=== PATIENT | female | born 1940 | race Caucasian/White ===

== ENCOUNTER 2017-03-14 17:28 | Emergency (ER) | payer MEDICARE, OTHER ==
[~2017-03-14] VITALS: Ht 157.5 cm; Wt 67.5 kg
[~2017-03-14 17:28] MED LIST: ASPI-664 PO; CALC-67 PO; DOCU-144 PO; IBUP400T22 PO; LANS30CA47 PO; LISI20TA11 PO; METO-448 PO; MULT1TAB59 PO; PEN500 PO; SYN1 PO; TRAM50TA2 PO; TYL500 PO
[2017-03-14 17:41] VITALS: Ht 157.5 cm; Wt 67.5 kg
[2017-03-14] MEDS ORDERED: ACETAMINOPHEN 500 MG TAB PO STA (19:44)
--- NOTE | 2017-03-14 19:55 | ERD ---
ER Documentation Chief Complaint Date/Time DATE: 03/14/17 TIME: 19:52 Chief Complaint bilateral leg and knee pain s/p fall x 3 days ago HPI 76-year-old female who presents the emergency department today complaining of knee pain and lower leg pain after falling while walking several days ago. States that she tripped and fell on the sidewalk. Patient states she has taken medication for pain with no improvement. Denies any fevers or chills or previous trauma. Denies hitting her head, loss of consciousness. ROS All systems reviewed and are negative except as per history of present illness. Medications Home Meds Active Scripts Acetaminophen* (Tylophen*) 500 Mg Capsule, 1 CAP PO Q6H Y for PAIN AND OR ELEVATED TEMP, #30 CAP Prov:ARIANNA THOMPSON PA-C 03/14/17 Naproxen* (Naprosyn*) 500 Mg Tablet, 500 MG PO BID Y for PAIN AND/OR INFLAMMATION, #30 TAB Prov:ARIANNA THOMPSON PA-C 03/14/17 Tramadol HCl (Tramadol HCl) 50 Mg Tablet, 50 MG PO Q4 Y for PAIN, #20 TAB Prov:ARIANNA THOMPSON-C 03/14/17 Tramadol HCl (Tramadol HCl) 50 Mg Tablet, 50 MG PO Q6 Y for PAIN, #20 TAB Prov:SERGE LEVINE NP 08/07/16 Ibuprofen* (Motrin*) 400 Mg Tab, 400 MG PO Q6H Y for PAIN AND OR ELEVATED TEMP, #30 TAB Prov:SERGE LEVINE NP 08/07/16 Penicillin V Potassium* (Penicillin V K*) 500 Mg Tab, 500 MG PO BID for 10 Days , TAB Prov:KIRSTIN HOGAN C 04/21/16 Acetaminophen* (Tylenol*) 500 Mg Tab, 1000 MG PO Q4H Y for PAIN AND OR ELEVATED TEMP for 5 Days, TAB Prov:KIRSTIN HOGAN C 04/21/16 Tramadol HCl (Tramadol HCl) 50 Mg Tablet, 50 MG PO Q4 Y for PAIN, #20 TAB Prov:MARIO BHATTI MD 03/11/16 Ibuprofen* (Motrin*) 400 Mg Tab, 400 MG PO Q6, #20 TAB Prov:MARIO BHATTI MD 03/11/16 Calcium Carbonate/Vitamin D3* (Os-Bijan 500+D*) 1 Tab Tablet, 1 TAB PO BID for 30 Days, TAB Prov:KIRSTEN HIGGINS. 02/15/16 Docusate Sodium* (Colace*) 100 Mg Capsule, 200 MG PO BID for 30 Days, CAP Prov:KIRSTEN HIGGINS. 02/15/16 Lansoprazole* (Prevacid*) 30 Mg Capsule., 30 MG PO DAILY, #30 CAP Prov:CORINE CARROLL MD 08/06/15 Reported Medications Aspirin* (Aspirin* EC) 81 Mg Tablet.dr, 81 MG PO DAILY, TAB 04/07/15 Lisinopril* (Lisinopril*) 20 Mg Tablet, 20 MG PO DAILY, TAB 04/07/15 Multivitamins* (Multivitamins*) 1 Tab Tablet, 1 TAB PO DAILY 08/04/12 Levothyroxine Sodium (Levothroid) 100 Mcg Tablet, 100 MCG PO DAILY 07/21/12 Metoprolol Tartrate* (Lopressor*) 25 Mg Tab, 25 MG PO DAILY 07/21/12 Allergies Allergies: Coded Allergies: No Known Drug Allergies (Verified Allergy, Mild, 03/14/17) PMhx/Soc History of Surgery: Yes (hernia repair appendectomy cholecystectomy abdominal surgery, eye surgery) Anesthesia Reaction: No Hx Neurological Disorder: No Hx Respiratory Disorders: No Hx Cardiac Disorders: Yes (HTN) Hx Psychiatric Problems: No Hx Miscellaneous Medical Probl: No (THYROID) Hx Alcohol Use: No Hx Substance Use: No Hx Tobacco Use: No Smoking Status: Never smoker Physical Exam Vitals Vital Signs Date Time Temp Pulse Resp B/P Pulse Ox O2 Delivery O2 Flow Rate FiO2 03/14/17 17:41 97.9 78 20 185/82 97 Physical Exam Const: No acute distress Head: Atraumatic Eyes: Normal Conjunctiva ENT: Normal External Ears, Nose and Mouth. Neck: Full range of motion..~ No meningismus. Resp: Clear to auscultation bilaterally Cardio: Regular rate and rhythm, no murmurs Skin: No petechiae or rashes. No abrasions MSK: Bilateral knee and lower extremity no obvious deformity. No effusion. No ecchymosis. Tenderness palpation diffusely over anterior aspect of knee and posterior aspect of bilateral legs. Full active range of motion of knee. Pulses 2+. Distal neurovascularly intact. Neur: Awake and alert Psych: Normal Mood and Affect Results 24 hrs Current Medications Medications (Trade) Dose Ordered Sig/Caesar Route PRN Reason Start Time Stop Time Status Last Admin Dose Admin Acetaminophen (Tylenol Tab) 500 mg ONCE STAT PO 03/14/17 19:44 03/14/17 19:46 DC 03/14/17 19:49 DIAGNOSTIC IMAGING REPORT Patient: MYA BRITTON : 1940 Age: 76 Sex: F MR #: [id number] DOS: 03/14/17 0000 Ordering MD: ARIANNA THOMPSON PA-C Location: [facility] Room/Bed: PROCEDURE: Right knee x-ray CLINICAL INDICATION: Fall. TECHNIQUE: AP, lateral and oblique views of the knee were obtained. COMPARISON: None FINDINGS: There spurs off of the medial femoral and tibial condyles. There is a sesamoid bone adjacent to the lateral femoral condyle. No effusion is noted. IMPRESSION: Mild degenerative changes of the right knee. RPTAT:AAJJ Physician Stormy Date Time Electronically viewed and signed by Markel Navarrete Physician on 03/14/2017 21:09 JM/ CC: ARIANNA THOMPSON PA-C DIAGNOSTIC IMAGING REPORT Patient: MYA BRITTON : 1940 Age: 76 Sex: F MR #: [id number] DOS: 03/14/17 0000 Ordering MD: ARIANNA THOMPSON PA-C Location: [facility] Room/Bed: PROCEDURE: Left tibia and fibula x-ray CLINICAL INDICATION: pain after fall TECHNIQUE: AP, lateral views of the tibia and fibula were obtained. COMPARISON: None FINDINGS: There is normal mineralization. No acute fracture or dislocation is seen. There are no significant degenerative changes. There is a subtle contour change of the soft tissues adjacent to the distal diaphysis of the tibia which is of questionable significance. This may represent soft tissue swelling. IMPRESSION: No evidence of an acute fracture involving the left tibia or fibula. RPTAT:AAJJ Physician Stormy Date Time Electronically viewed and signed by Markel Navarrete Physician on 03/14/2017 21:28 JM/ CC: ARIANNA THOMPSON PA-C DIAGNOSTIC IMAGING REPORT Patient: MYA BRITTON : 1940 Age: 76 Sex: F MR #: [id number] DOS: 03/14/17 0000 Ordering MD: ARIANNA THOMPSON PA-C Location: [facility] Room/Bed: PROCEDURE: XR Tibia and Fibula. CLINICAL INDICATION: Pain. Trauma. TECHNIQUE: Four views of the right tibia and fibula are available for review. COMPARISON: None available FINDINGS: The right tibia and fibula are intact. No acute fracture or dislocation is seen. There degenerate change in the with marginal osteophytes greatest in the medial joint space. No radiopaque foreign body is identified. The soft tissues are unremarkable. IMPRESSION: 1. No acute fracture. 2. Knee medial joint space degenerative changes. RPTAT: HMVK .Gerard Burns MD, MD Date Time Electronically viewed and signed by .Gerard Burns MD, MD on 03/14/2017 21:34 .K/ CC: ARIANNA THOMPSON PA-C Procedures/MDM This is a 76-year-old female who presents the emergency department today complaining of bilateral knee and lower leg pain after sustaining a mechanical fall a few days ago while walking. Patient indicated that she tripped. I did obtain images given the patient's complaints at age. Per the radiology report images of the right knee show mild degenerative changes of the right knee. There is 3 spurs of the medial femoral tibial condyles. There is a sesamoid bone adjacent to the lateral femoral condyle. There is no effusion. There is no acute fracture dislocation. Images of bilateral tibia fibula show no evidence of acute fracture dislocation. Patient symptoms at this time is consistent with sprain versus strain versus contusion as well as arthritis. I do not feel the patient requires further laboratory workup or imaging as this appeared to be a mechanical fall and there is no syncopal episode. Patient was given Tylenol here in the emergency department. I will give her a prescription for tramadol, Naprosyn, Tylenol for home. Patient declined crutches. At this time the patient is stable for discharge and outpatient management. Patient should follow up with their PCP in the next 1-2 days. They may return to the emergency department sooner for any persistent or worsening of symptoms. Patient understood and agreed with the plan. Departure Diagnosis: Primary Impression: Bilateral leg pain Additional Impression: Fall Encounter type: initial encounter Qualified Code: W19.XXXA - Fall, initial encounter Condition: Fair ARIANNA THOMPSON PA-C Mar 14, 2017 19:55
--- NOTE | 2017-03-14 21:09 | RADRPT ---
PROCEDURE: Right knee x-ray CLINICAL INDICATION: Fall. TECHNIQUE: AP, lateral and oblique views of the knee were obtained. COMPARISON: None FINDINGS: There spurs off of the medial femoral and tibial condyles. There is a sesamoid bone adjacent to the lateral femoral condyle. No effusion is noted. IMPRESSION: Mild degenerative changes of the right knee. RPTAT:AAJJ Physician Stormy Date Time Electronically viewed and signed by Markel Navarrete Physician on 03/14/2017 21:09 /
--- NOTE | 2017-03-14 21:28 | RADRPT ---
PROCEDURE: Left tibia and fibula x-ray CLINICAL INDICATION: pain after fall TECHNIQUE: AP, lateral views of the tibia and fibula were obtained. COMPARISON: None FINDINGS: There is normal mineralization. No acute fracture or dislocation is seen. There are no significant degenerative changes. There is a subtle contour change of the soft tissues adjacent to the distal diaphysis of the tibia w hich is of questionable significance. This may represent soft tissue swelling. IMPRESSION: No evidence of an acute fracture involving the left tibia or fibula. RPTAT:AAJJ Physician Stormy Date Time Electronically viewed and signed by Physician Stormy on 03/14/2017 21:28 /
--- NOTE | 2017-03-14 21:35 | RADRPT ---
PROCEDURE: XR Tibia and Fibula. CLINICAL INDICATION: Pain. Trauma. TECHNIQUE: Four views of the right tibia and fibula are available for review. COMPARISON: None available FINDINGS: The right tibia and fibula are intact. No acute fracture or dislocation is seen. There degenerate c hange in the with marginal osteophytes greatest in the medial joint space. No radiopaque foreign bod y is identified. The soft tissues are unremarkable. IMPRESSION: 1. No acute fracture. 2. Knee medial joint space degenerative changes. RPTAT: HMVK .Gerard Burns MD, MD Date Time Electronically viewed and signed by .Gerard Burns MD, MD on 03/14/2017 21:34 .K/
[2017-03-14] MEDS ORDERED: TRAM50TA2 PO (21:41)
[2017-03-14] MEDS ORDERED: NAPR-260 PO (21:41)
[2017-03-14] MEDS ORDERED: ACET500C5 PO (21:41)
[2017-03-14 22:00] VITALS: BP 180/90; PULSE 89; RESP 18; TEMP 98.3
== END 2017-03-14 22:02 | disposition home or self-care (01) ==
LOC: FTE 17:28
DX: M79.605 Pain in left leg (principal); M79.604 Pain in right leg; I10 Essential (primary) hypertension; Z04.3 Encounter for examination and observation following other accident; Z79.82 Long term (current) use of aspirin
CPT/HCPCS: 73562; 73590

== ENCOUNTER 2017-06-29 07:24 | Emergency (ER) | payer MEDICARE, OTHER ==
[~2017-06-29] VITALS: Wt 63.0 kg
[~2017-06-29 07:24] MED LIST changes: +ACET500C5 PO; +NAPR-260 PO
[2017-06-29] MEDS ORDERED: KETOROLAC 30 MG INJ IM STA (07:58)
--- NOTE | 2017-06-29 08:27 | ERD ---
ER Documentation Chief Complaint Date/Time DATE: 06/29/17 TIME: 08:25 Chief Complaint UPPER AND LOWER BACK PAIN FROM YESTERDAY. NON TRAUMATIC. NO NEURO DEF HPI This is a 77-year-old female presents emergency department today complaining of upper back pain right shoulder pain and low back pain that started yesterday. Patient denies any falls. States she has a history of arthritis all over her body for which she takes ibuprofen and Tylenol. Denies any fevers or chills, nausea or vomiting. Denies any dysuria ROS All systems reviewed and are negative except as per history of present illness. Medications Home Meds Active Scripts Naproxen* (Naprosyn*) 500 Mg Tablet, 500 MG PO BID Y for PAIN AND/OR INFLAMMATION, #30 TAB Prov:ARIANNA THOMPSON PA-C 06/29/17 Tramadol HCl (Tramadol HCl) 50 Mg Tablet, 50 MG PO Q4 Y for PAIN, #20 TAB Prov:ARIANNA THOMPSON PA-C 06/29/17 Acetaminophen* (Tylophen*) 500 Mg Capsule, 1 CAP PO Q6H Y for PAIN AND OR ELEVATED TEMP, #30 CAP Prov:ARIANNA THOMPSON PA-C 03/14/17 Naproxen* (Naprosyn*) 500 Mg Tablet, 500 MG PO BID Y for PAIN AND/OR INFLAMMATION, #30 TAB Prov:ARIANNA THOMPSONC 03/14/17 Tramadol HCl (Tramadol HCl) 50 Mg Tablet, 50 MG PO Q4 Y for PAIN, #20 TAB Prov:ARIANNA THOMPSONC 03/14/17 Tramadol HCl (Tramadol HCl) 50 Mg Tablet, 50 MG PO Q6 Y for PAIN, #20 TAB Prov:SERGE LEVINE NP 08/07/16 Ibuprofen* (Motrin*) 400 Mg Tab, 400 MG PO Q6H Y for PAIN AND OR ELEVATED TEMP, #30 TAB Prov:SERGE LEVINE NP 08/07/16 Penicillin V Potassium* (Penicillin V K*) 500 Mg Tab, 500 MG PO BID for 10 Days , TAB Prov:KIRSTIN HOGAN 04/21/16 Acetaminophen* (Tylenol*) 500 Mg Tab, 1000 MG PO Q4H Y for PAIN AND OR ELEVATED TEMP for 5 Days, TAB Prov:KIRSTIN HOGAN 04/21/16 Tramadol HCl (Tramadol HCl) 50 Mg Tablet, 50 MG PO Q4 Y for PAIN, #20 TAB Prov:MARIO BHATTI MD 03/11/16 Ibuprofen* (Motrin*) 400 Mg Tab, 400 MG PO Q6, #20 TAB Prov:MARIO BHATTI MD 03/11/16 Calcium Carbonate/Vitamin D3* (Os-Bijan 500+D*) 1 Tab Tablet, 1 TAB PO BID for 30 Days, TAB Prov:KIRSTEN HIGGINS. 02/15/16 Docusate Sodium* (Colace*) 100 Mg Capsule, 200 MG PO BID for 30 Days, CAP Prov:KIRSTEN HIGGINS M. 02/15/16 Lansoprazole* (Prevacid*) 30 Mg Capsule.dr, 30 MG PO DAILY, #30 CAP Prov:CORINE CARROLL MD 08/06/15 Reported Medications Aspirin* (Aspirin* EC) 81 Mg Tablet.dr, 81 MG PO DAILY, TAB 04/07/15 Lisinopril* (Lisinopril*) 20 Mg Tablet, 20 MG PO DAILY, TAB 04/07/15 Multivitamins* (Multivitamins*) 1 Tab Tablet, 1 TAB PO DAILY 08/04/12 Levothyroxine Sodium (Levothroid) 100 Mcg Tablet, 100 MCG PO DAILY 07/21/12 Metoprolol Tartrate* (Lopressor*) 25 Mg Tab, 25 MG PO DAILY 07/21/12 Allergies Allergies: Coded Allergies: No Known Drug Allergies (Verified Allergy, Mild, 03/14/17) PMhx/Soc History of Surgery: Yes (hernia repair appendectomy cholecystectomy abdominal surgery, eye surgery) Anesthesia Reaction: No Hx Neurological Disorder: No Hx Respiratory Disorders: No Hx Cardiac Disorders: Yes (HTN) Hx Psychiatric Problems: No Hx Miscellaneous Medical Probl: No (THYROID) Hx Alcohol Use: No Hx Substance Use: No Hx Tobacco Use: No Smoking Status: Never smoker Physical Exam Vitals Vital Signs Date Time Temp Pulse Resp B/P Pulse Ox O2 Delivery O2 Flow Rate FiO2 06/29/17 07:26 98.1 66 20 147/66 99 Physical Exam Const: No acute distress Head: Atraumatic Eyes: Normal Conjunctiva ENT: Normal External Ears, Nose and Mouth. Neck: Full range of motion..~ No meningismus. Resp: Clear to auscultation bilaterally Cardio: Regular rate and rhythm, no murmurs Abd: Soft, non tender, non distended. Normal bowel sounds Skin: No petechiae or rashes Back: No midline tenderness. Bilateral paraspinal tenderness lumbar and thoracic. Ext: No cyanosis, or edema. Right shoulder with no extremity. No effusion. No ecchymosis. Full active range of motion. Pulses 2+. Distal neurovascularly intact Neur: Awake and alert Psych: Normal Mood and Affect Results 24 hrs Laboratory Tests Test 06/29/17 08:54 Bedside Urine pH (LAB) 5.5 Bedside Urine Protein (LAB) Negative Bedside Urine Glucose (UA) Negative Bedside Urine Ketones (LAB) Negative Bedside Urine Blood 1+ Bedside Urine Nitrite (LAB) Negative Bedside Urine Leukocyte Esterase (L Negative Current Medications Medications (Trade) Dose Ordered Sig/Caesar Route PRN Reason Start Time Stop Time Status Last Admin Dose Admin Ketorolac Tromethamine (Toradol) 30 mg ONCE STAT IM 06/29/17 07:58 06/29/17 07:59 DC 06/29/17 08:07 Procedures/MDM This is a 77-year-old female presents the emergency department today complaining of diffuse back pain and right shoulder pain that started. Patient does have a history of arthritis throughout her body. She has had no falls and no significant trauma I do not feel that she requires imaging at this time. I did obtain a UA UA shows negative leukocyte esterase negative nitrites. 1+ blood. Patient is afebrile and otherwise well-appearing. She has no loss of bowel or bladder control have low suspicion for cauda equina or abscess. Low suspicion for meningitis. Low suspicion for pyelonephritis given patient's hematuria it is possible that she has kidney stones. I have explained this to her however given diffuse nature of her back pain pPatient symptoms at this time is consistent with musculoskeletal strain versus chronic pain. She was given Toradol here in the emergency department. She will begin a short course of tramadol and Naprosyn for home. At this time the patient is stable for discharge and outpatient management. Patient should follow up with their PCP in the next 1-2 days. They may return to the emergency department sooner for any persistent or worsening of symptoms. Patient understood and agreed with the plan. Departure Diagnosis: Primary Impression: Back pain Back pain location: back pain in unspecified location Chronicity: unspecified Back pain laterality: bilateral Qualified Code: M54.9 - Bilateral back pain, unspecified back location, unspecified chronicity Condition: ARIANNA Al PA-C Jun 29, 2017 08:27
[2017-06-29 08:48] LABS: URINE BLOOD (Dip) POC 1+ (NEGATIVE)
[2017-06-29] MEDS ORDERED: TRAM50TA2 PO (09:01)
[2017-06-29] MEDS ORDERED: NAPR-260 PO (09:02)
== END 2017-06-29 09:16 | disposition home or self-care (01) ==
LOC: FTE 07:24
DX: M54.6 Pain in thoracic spine (principal); M54.5 Low back pain; I10 Essential (primary) hypertension; Z79.82 Long term (current) use of aspirin
CPT/HCPCS: 81003; 96372; 99284; J1885

== ENCOUNTER 2017-07-03 13:32 | Emergency (ER) | payer MEDICARE, OTHER ==
[~2017-07-03] VITALS: Wt 75.0 kg
[2017-07-03] MEDS ORDERED: METHYLPREDNISOLONE 125 MG INJ IM ONE (14:00)
[2017-07-03] MEDS ORDERED: RANITIDINE 150 MG TAB PO ONE (14:00)
[2017-07-03] MEDS ORDERED: DIPHENHYDRAMINE 50 MG INJ IM ONE (14:00)
[2017-07-03] MEDS ORDERED: PRED20TA PO (14:08)
[2017-07-03] MEDS ORDERED: FAMO-96 PO (14:08)
[2017-07-03] MEDS ORDERED: BEN25 PO (14:08)
--- NOTE | 2017-07-03 14:18 | ERD ---
ER Documentation Chief Complaint Date/Time DATE: 07/03/17 TIME: 14:13 Chief Complaint rash and itching today HPI 77-year-old female presents with generalized erythematous rash that is pruritic starting this afternoon approximately an hour and a half prior to evaluation. She recently reports that she is being treated for dental infection and is taking amoxicillin 500 mg and she took it this morning about 3 hours prior to the rash starting. This is the only new introduction of any allergen, she has not had any new foods, no other medications that are new, and she is taking ibuprofen for the pain but reports that she has taken this many times before without any problems. She has no oral swelling, tongue swelling or shortness of breath. ROS All systems reviewed and are negative except as per history of present illness. Medications Home Meds Active Scripts Famotidine* (Pepcid*) 20 Mg Tablet, 20 MG PO BID for 4 Days, TAB Prov:OJ LEDEZMA PA-C 07/03/17 Diphenhydramine Hcl* (Benadryl*) 25 Mg Cap, 25 MG PO Q6, #30 CAP Prov:OJ LEDEZMA PA-C 07/03/17 Prednisone* (Prednisone*) 20 Mg Tab, 40 MG PO DAILY for 4 Days, TAB Prov:OJ LEDEZMA PA-C 07/03/17 Naproxen* (Naprosyn*) 500 Mg Tablet, 500 MG PO BID Y for PAIN AND/OR INFLAMMATION, #30 TAB Prov:ARIANNA THOMPSON PA-C 06/29/17 Tramadol HCl (Tramadol HCl) 50 Mg Tablet, 50 MG PO Q4 Y for PAIN, #20 TAB Prov:ARIANNA THOMPSON PA-C 06/29/17 Acetaminophen* (Tylophen*) 500 Mg Capsule, 1 CAP PO Q6H Y for PAIN AND OR ELEVATED TEMP, #30 CAP Prov:ARIANNA THOMPSON PA-C 03/14/17 Naproxen* (Naprosyn*) 500 Mg Tablet, 500 MG PO BID Y for PAIN AND/OR INFLAMMATION, #30 TAB Prov:ARIANNA THOMPSON PA-C 03/14/17 Tramadol HCl (Tramadol HCl) 50 Mg Tablet, 50 MG PO Q4 Y for PAIN, #20 TAB Prov:ARIANNA THOMPSON PA-C 03/14/17 Tramadol HCl (Tramadol HCl) 50 Mg Tablet, 50 MG PO Q6 Y for PAIN, #20 TAB Prov:SERGE LEVINE NP 08/07/16 Ibuprofen* (Motrin*) 400 Mg Tab, 400 MG PO Q6H Y for PAIN AND OR ELEVATED TEMP, #30 TAB Prov:SERGE LEVINE NP 08/07/16 Penicillin V Potassium* (Penicillin V K*) 500 Mg Tab, 500 MG PO BID for 10 Days , TAB Prov:KIRSTIN HOGAN 04/21/16 Acetaminophen* (Tylenol*) 500 Mg Tab, 1000 MG PO Q4H Y for PAIN AND OR ELEVATED TEMP for 5 Days, TAB Prov:KIRSTIN HOGAN 04/21/16 Tramadol HCl (Tramadol HCl) 50 Mg Tablet, 50 MG PO Q4 Y for PAIN, #20 TAB Prov:MARIO BHATTI MD 03/11/16 Ibuprofen* (Motrin*) 400 Mg Tab, 400 MG PO Q6, #20 TAB Prov:MARIO BHATTI MD 03/11/16 Calcium Carbonate/Vitamin D3* (Os-Bijan 500+D*) 1 Tab Tablet, 1 TAB PO BID for 30 Days, TAB Prov:KIRSTEN HIGGINS 02/15/16 Docusate Sodium* (Colace*) 100 Mg Capsule, 200 MG PO BID for 30 Days, CAP Prov:KIRSTEN HIGGINS . 02/15/16 Lansoprazole* (Prevacid*) 30 Mg Capsule., 30 MG PO DAILY, #30 CAP Prov:CORINE CARROLL MD 08/06/15 Reported Medications Aspirin* (Aspirin* EC) 81 Mg Tablet.dr, 81 MG PO DAILY, TAB 04/07/15 Lisinopril* (Lisinopril*) 20 Mg Tablet, 20 MG PO DAILY, TAB 04/07/15 Multivitamins* (Multivitamins*) 1 Tab Tablet, 1 TAB PO DAILY 08/04/12 Levothyroxine Sodium (Levothroid) 100 Mcg Tablet, 100 MCG PO DAILY 07/21/12 Metoprolol Tartrate* (Lopressor*) 25 Mg Tab, 25 MG PO DAILY 07/21/12 Allergies Allergies: Coded Allergies: No Known Drug Allergies (Verified Allergy, Mild, 03/14/17) PMhx/Soc History of Surgery: Yes (hernia repair appendectomy cholecystectomy abdominal surgery, eye surgery) Anesthesia Reaction: No Hx Neurological Disorder: No Hx Respiratory Disorders: No Hx Cardiac Disorders: Yes (HTN) Hx Psychiatric Problems: No Hx Miscellaneous Medical Probl: No (THYROID) Hx Alcohol Use: No Hx Substance Use: No Hx Tobacco Use: No Smoking Status: Never smoker Physical Exam Vitals Vital Signs Date Time Temp Pulse Resp B/P Pulse Ox O2 Delivery O2 Flow Rate FiO2 07/03/17 13:42 97.8 65 18 138/65 99 Physical Exam General: Well-developed, well-nourished. The patient appears in no acute distress. HEENT: Head is normocephalic, atraumatic. No scleral icterus. No angioedema. Neck: Supple. Nontender. Lungs: Clear to auscultation. Normal air movement. No stridor. Heart: Regular rate and rhythm. S1 and S2 are normal. No murmurs, gallops, or rubs. Abdomen: Soft, nontender, nondistended. Bowel sounds are normoactive. Extremities: No clubbing or cyanosis. Normal pulses. Moving extremities x 4. No weakness. Neurologic: Alert and oriented 3. No focal deficits. Skin: Generalized erythematous rash, to the trunk and extremities. Results 24 hrs Current Medications Medications (Trade) Dose Ordered Sig/Caesar Route PRN Reason Start Time Stop Time Status Last Admin Dose Admin Methylprednisolone Sodium Succinate (Solu-Medrol) 80 mg ONCE ONCE IM 07/03/17 14:00 07/03/17 14:01 DC 07/03/17 14:05 Diphenhydramine HCl (Benadryl) 25 mg ONCE ONCE IM 07/03/17 14:00 07/03/17 14:01 DC 07/03/17 14:05 Ranitidine HCl (Zantac) 150 mg ONCE ONCE PO 07/03/17 14:00 07/03/17 14:05 DC Famotidine (Pepcid) 20 mg ONCE ONCE PO 07/03/17 14:30 07/03/17 14:31 Procedures/MDM ED course: She was given Solu-Medrol, Pepcid, and Benadryl. Medical decision makin-year-old female presents with a generalized allergic reaction that is mild to moderate, without any signs of respiratory distress, was treated here in the emergency department feeling much better. She reports that her symptoms began several hours after taking 1 dose of amoxicillin this morning, this is likely a drug reaction. She was advised to discontinue the antibiotics, she has an appointment to see a dentist tomorrow. Patient's allergic symptoms have stabilized while they have been evaluated in the department without evidence of persistent systemic reaction. Patient is healthy and capable of treating and responding to rebound reactions. Patient appropriate for outpatient allergy work up and treatment. Patient's blood pressure was elevated (>120/80) but appears stable without evidence of hypertension emergency or urgency. The patient was counseled about the risks of hypertension and urged to pursue outpatient monitoring and therapy within a week with their primary care physician. Departure Diagnosis: Primary Impression: Allergic reaction Condition: Good Patient Instructions: Allergic Reaction, Drug Additional Instructions: Llame al doctor MAANA y trey judah PING PARA DENTRO DE 1-2 REES.Dgale a la secretaria que nosotros le instruimos hacer esta ping.Avise o llame si underwood condicin se empeora antes de la ping. Regresa aqui si peor o no mejor. OJ LEDEZMA PA-C Jul 03, 2017 14:18
[2017-07-03] MEDS ORDERED: FAMOTIDINE 20 MG TAB PO ONE (14:30)
== END 2017-07-03 15:11 | disposition home or self-care (01) ==
LOC: FTE 13:32
DX: R21 Rash and other nonspecific skin eruption (principal); I10 Essential (primary) hypertension; Z79.82 Long term (current) use of aspirin
CPT/HCPCS: 96372; 99284; J1200; J2930

== ENCOUNTER 2018-02-18 18:22 | Emergency (ER) | END 2018-02-18 20:23 | disposition home or self-care (01) ==

== ENCOUNTER 2018-03-07 12:34 | Emergency (ER) | END 2018-03-07 14:20 | disposition home or self-care (01) ==

== ENCOUNTER 2019-02-17 06:03 | Emergency (ER) | payer OTHER ==
[~2019-02-17] VITALS: Ht 149.9 cm; Wt 67.3 kg
[~2019-02-17 06:03] MED LIST changes: -ASPI-664 PO; +ASPI-817 PO; +BEN25 PO; +DICL100G37 TOP; +FAMO-96 PO; +IBUP-1561 PO; -IBUP400T22 PO; +LEVO-86 PO; +LISI-471 PO; -LISI20TA11 PO; -NAPR-260 PO; +NAPR-985 PO; +OLOP5DRO12 BOTH EYES; -PEN500 PO; +PENI500T PO; +PRED20TA PO; -SYN1 PO
[2019-02-17 06:15] VITALS: Ht 149.9 cm; Wt 67.3 kg
[2019-02-17] MEDS ORDERED: morphine 4 MG/ML VIAL IV STA (06:28)
[2019-02-17] MEDS ORDERED: ONDANSETRON 4 MG INJ IV STA (06:28)
[2019-02-17] MEDS ORDERED: IBUP-1542 PO (08:54)
[2019-02-17] MEDS ORDERED: ONDA4TAB14 PO (08:54)
--- NOTE | 2019-02-17 08:55 | ERD ---
ER Documentation Chief Complaint Chief Complaint EPIGASTRIC PAIN/ DIARRHEA X'S 2 WEEKS HPI Patient is a 78-year-old female with hypertension who presents with abdominal pain. The patient has had 3 days of upper abdominal pain which comes and goes. The pain is sharp in nature. She has had no treatment as of yet. Upon review of old medical record the patient has multiple visits for various complaints. The patient's primary doctor is Dr. Riddle. ROS All systems reviewed and are negative except as per history of present illness. Medications Home Meds Active Scripts Ondansetron (Ondansetron Odt) 4 Mg Tab.rapdis, 4 MG PO Q6H PRN for NAUSEA AND/OR VOMITING, #10 TAB Prov:ALEJANDRA SHAH MD 02/17/19 Ibuprofen* (Motrin*) 600 Mg Tab, 600 MG PO Q6H PRN for PAIN AND OR ELEVATED TEMP, #30 TAB Prov:ALEJANDRA SHAH MD 02/17/19 Naproxen* (Naprosyn*) 500 Mg Tablet, 500 MG PO BID PRN for PAIN AND/OR INFLAMMATION, #30 TAB Prov:RAYMUNDO DALLAS PA-C 03/07/18 Diclofenac Sodium* (Voltaren* Gel) 1% -100 Gm Gel, 2 GM TOP QID, #1 TUB Prov:RAYMUNDO DALLAS PA-C 03/07/18 Olopatadine* (Patanol* Ophth) 0.1% - 5 Ml Drops, 1 DROP BOTH EYES BID, #1 EA Prov:WILMA BERNAL MD 02/18/18 Famotidine* (Pepcid*) 20 Mg Tablet, 20 MG PO BID for 4 Days, TAB Prov:OJ LEDEZMA PA-C 07/03/17 Diphenhydramine Hcl* (Benadryl*) 25 Mg Cap, 25 MG PO Q6, #30 CAP Prov:OJ LEDEZMA PA-C 07/03/17 Prednisone* (Prednisone*) 20 Mg Tab, 40 MG PO DAILY for 4 Days, TAB Prov:OJ LEDEZMA PA-C 07/03/17 Naproxen* (Naprosyn*) 500 Mg Tablet, 500 MG PO BID PRN for PAIN AND/OR INFLAMMATION, #30 TAB Prov:ARIANNA THOMPSON PA-C 06/29/17 Tramadol HCl (Tramadol HCl) 50 Mg Tablet, 50 MG PO Q4 PRN for PAIN, #20 TAB Prov:ARIANNA THOMPSON-C 06/29/17 Acetaminophen* (Tylophen*) 500 Mg Capsule, 1 CAP PO Q6H PRN for PAIN AND OR ELEVATED TEMP, #30 CAP Prov:ARIANNA THOMPSON-C 03/14/17 Naproxen* (Naprosyn*) 500 Mg Tablet, 500 MG PO BID PRN for PAIN AND/OR INFLAMMATION, #30 TAB Prov:ARIANNA THOMPSON-C 03/14/17 Tramadol HCl (Tramadol HCl) 50 Mg Tablet, 50 MG PO Q4 PRN for PAIN, #20 TAB Prov:ARIANNA THOMPSON-C 03/14/17 Tramadol HCl (Tramadol HCl) 50 Mg Tablet, 50 MG PO Q6 PRN for PAIN, #20 TAB Prov:SERGE LEVINE NP 08/07/16 Ibuprofen* (Motrin*) 400 Mg Tab, 400 MG PO Q6H PRN for PAIN AND OR ELEVATED TEMP, #30 TAB Prov:SERGE LEVINE NP 08/07/16 Penicillin V Potassium* (Penicillin V K*) 500 Mg Tab, 500 MG PO BID for 10 Days, TAB Prov:KIRSTIN HOGAN 04/21/16 Acetaminophen* (Tylenol*) 500 Mg Tab, 1000 MG PO Q4H PRN for PAIN AND OR ELEVATED TEMP for 5 Days, TAB Prov:KIRSTIN HOGAN 04/21/16 Tramadol HCl (Tramadol HCl) 50 Mg Tablet, 50 MG PO Q4 PRN for PAIN, #20 TAB Prov:MARIO BHATTI MD 03/11/16 Ibuprofen* (Motrin*) 400 Mg Tab, 400 MG PO Q6, #20 TAB Prov:MARIO BHATTI MD 03/11/16 Calcium Carbonate/Vitamin D3* (Os-Bijan 500+D*) 1 Tab Tablet, 1 TAB PO BID for 30 Days, TAB Prov:KIRSTEN HIGGINS 02/15/16 Docusate Sodium* (Colace*) 100 Mg Capsule, 200 MG PO BID for 30 Days, CAP Prov:KIRSTEN HIGGINS 02/15/16 Lansoprazole* (Prevacid*) 30 Mg Capsule., 30 MG PO DAILY, #30 CAP Prov:CORINE CARROLL MD 08/06/15 Reported Medications Aspirin* (Aspirin* EC) 81 Mg Tablet., 81 MG PO DAILY, TAB 04/07/15 Lisinopril* (Lisinopril*) 20 Mg Tablet, 20 MG PO DAILY, TAB 04/07/15 Multivitamins* (Multivitamins*) 1 Tab Tablet, 1 TAB PO DAILY 08/04/12 Levothyroxine Sodium (Levothroid) 100 Mcg Tablet, 100 MCG PO DAILY 07/21/12 Metoprolol Tartrate* (Lopressor*) 25 Mg Tab, 25 MG PO DAILY 07/21/12 Allergies Allergies: Coded Allergies: No Known Drug Allergies (Verified Allergy, Mild, 03/14/17) PMhx/Soc History of Surgery: Yes (hernia repair appendectomy cholecystectomy abdominal surgery, eye surgery) Anesthesia Reaction: No Hx Neurological Disorder: No Hx Respiratory Disorders: No Hx Cardiac Disorders: Yes (HTN) Hx Psychiatric Problems: No Hx Miscellaneous Medical Probl: No (THYROID) Hx Alcohol Use: No Hx Substance Use: No Hx Tobacco Use: No Smoking Status: Never smoker FmHx Family History: No diabetes Physical Exam Vitals Vital Signs Date Temp Pulse Resp B/P (MAP) Pulse Ox O2 O2 Flow FiO2 Time Delivery Rate 02/17/19 60 14 162/73 95 Room Air 09:12 (102) 02/17/19 58 13 153/59 95 Room Air 08:00 (90) 02/17/19 63 15 161/66 99 Room Air 06:35 (97) 02/17/19 97.2 80 18 165/77 98 06:15 (106) Physical Exam Const: No acute distress Head: Atraumatic Eyes: Normal Conjunctiva ENT: Normal External Ears, Nose and Mouth. Neck: Full range of motion. No meningismus. Resp: Clear to auscultation bilaterally Cardio: Regular rate and rhythm, no murmurs Abd: Soft, upper abdominal pain without rebound or guarding Skin: No petechiae or rashes Back: No midline or flank tenderness Ext: No cyanosis, or edema Neur: Awake and alert Psych: Normal Mood and Affect Result Diagram: 3/26/19 0705 3/26/19 0705 Results 24 hrs Laboratory Tests Test 02/17/19 07:05 White Blood Count 7.1 10^3/ul Red Blood Count 4.12 10^6/ul Hemoglobin 10.8 g/dl Hematocrit 32.9 % Mean Corpuscular Volume 79.9 fl Mean Corpuscular Hemoglobin 26.2 pg Mean Corpuscular Hemoglobin Concent 32.8 g/dl Red Cell Distribution Width 12.8 % Platelet Count 320 10^3/UL Mean Platelet Volume 8.0 fl Immature Granulocytes % 0.100 % Neutrophils % 54.6 % Lymphocytes % 31.1 % Monocytes % 7.6 % Eosinophils % 6.2 % Basophils % 0.4 % Nucleated Red Blood Cells % 0.0 /100WBC Immature Granulocytes # 0.010 10^3/ul Neutrophils # 3.9 10^3/ul Lymphocytes # 2.2 10^3/ul Monocytes # 0.5 10^3/ul Eosinophils # 0.4 10^3/ul Basophils # 0.0 10^3/ul Nucleated Red Blood Cells # 0.0 10^3/ul Urine Color YELLOW Urine Clarity CLEAR Urine pH 8.0 Urine Specific [place] 1.014 Urine Ketones NEGATIVE mg/dL Urine Nitrite NEGATIVE mg/dL Urine Bilirubin NEGATIVE mg/dL Urine Urobilinogen NEGATIVE mg/dL Urine Leukocyte Esterase NEGATIVE [place]/ul Urine Hemoglobin NEGATIVE mg/dL Urine Glucose NEGATIVE mg/dL Urine Total Protein NEGATIVE mg/dl Sodium Level 145 mmol/L Potassium Level 3.7 mmol/L Chloride Level 98 mmol/L Carbon Dioxide Level 37 mmol/L Anion Gap 10 Blood Urea Nitrogen 11 mg/dl Creatinine 0.68 mg/dl Est Glomerular Filtrat Rate mL/min mL/min Glucose Level 103 mg/dl Calcium Level 9.3 mg/dl Total Bilirubin 0.2 mg/dl Direct Bilirubin 0.00 mg/dl Indirect Bilirubin 0.2 mg/dl Aspartate Amino Transf (AST/SGOT) 19 IU/L Alanine Aminotransferase (ALT/SGPT) 17 IU/L Alkaline Phosphatase 88 IU/L Troponin I < 0.012 ng/ml Total Protein 7.2 g/dl Albumin 3.9 g/dl Globulin 3.30 g/dl Albumin/Globulin Ratio 1.18 Lipase 140 U/L Current Medications Medications Dose Sig/Caesar Start Time Status Last (Trade) Ordered Route PRN Stop Time Admin Dose Reason Admin Morphine 4 mg ONCE STAT 02/17/19 DC 02/17/19 Sulfate IV 06:28 06:58 (morphine) 02/17/19 06:29 Ondansetron 4 mg ONCE STAT 02/17/19 DC 02/17/19 HCl (Zofran IV 06:28 06:59 Inj) 02/17/19 06:29 Procedures/MDM EKG read by me: Rate/Rhythm: Regular rate and rhythm at a rate of 63 Intervals: Normal Impression: No evidence of ischemia or arrhythmia CT shows no signs of surgical process per radiology. Patient is a 78-year-old female with history of previous colostomy, appendectomy, and hysterectomy who presents with abdominal pain. Patient's laboratory studies are basically normal. Urinalysis shows no sign of infection. CT scan of the abdomen pelvis shows no sign of surgical process. She is Armen had a cholecystectomy, appendectomy, and hysterectomy. I doubt cholecystitis, pancreatitis, appendicitis, or bowel obstruction. The patient will be discharged but will need to follow-up with her primary doctor within 24-48 hours for reevaluation. She can return sooner for any worsening symptoms. She was provided with copies of laboratory studies and CT scan report prior to discharge. Departure Diagnosis: Primary Impression: Abdominal pain Abdominal location: upper abdomen, unspecified Qualified Codes: R10.10 - Upper abdominal pain, unspecified Condition: Fair Patient Instructions: Abdominal Pain Referrals: Your doctor Additional Instructions: Llame al doctor MAANA y trey judah PING PARA DENTRO DE 1-2 REES.Dgale a la secretaria que nosotros le instruimos hacer esta ping.Avise o llame si underwood condicin se empeora antes de la ping. Regresa aqui si peor o no mejor. ALEJANDRA SHAH MD Feb 17, 2019 08:55
[2019-02-17 09:12] VITALS: BP 162/73; PULSE 60; RESP 14
== END 2019-02-17 09:12 | disposition home or self-care (01) ==
LOC: E/R 06:03
DX: R10.10 Upper abdominal pain, unspecified (principal); I10 Essential (primary) hypertension; Z79.82 Long term (current) use of aspirin
CPT/HCPCS: 36415; 74176; 80053; 81003; 83690; 84484; 85025; 93005; 96374; 96375; 99285; J2270; J2405

== ENCOUNTER 2019-06-23 16:10 | Emergency (ER) | payer OTHER ==
[~2019-06-23] VITALS: Ht 160 cm; Wt 67.3 kg
[~2019-06-23 16:10] MED LIST changes: +AMLO5TAB4 PO; +IBUP-1542 PO; +ONDA4TAB14 PO
[2019-06-23 16:26] VITALS: Ht 160 cm; Wt 67.3 kg
--- NOTE | 2019-06-23 19:41 | ERD ---
ER Documentation Chief Complaint Chief Complaint Headache HPI The patient is a 79-year-old female, presenting to the ER because of in termittent headache for the last 2 days, had similar symptoms previously. She denies syncope, near syncope, seizure, blurred vision, fever, chills, neck pain, chest pain, dyspnea, abdominal pain, vomiting. She has not been taking her medication for 1 week, denies smoking or drinking Past medical history: Hypertension, hypothyroidism Past surgical history: Appendectomy, cholecystectomy, hysterectomy ROS All systems reviewed and are negative except as per history of present illness. Medications Home Meds Active Scripts Amlodipine Besylate* (Norvasc*) 5 Mg Tablet, 5 MG PO DAILY, #14 TAB Prov:DANE FOREMAN MD 06/23/19 Ondansetron (Ondansetron Odt) 4 Mg Tab.rapdis, 4 MG PO Q6H PRN for NAUSEA AND/OR VOMITING, #10 TAB Prov:ALEJANDRA SHAH MD 02/17/19 Ibuprofen* (Motrin*) 600 Mg Tab, 600 MG PO Q6H PRN for PAIN AND OR ELEVATED TEMP, #30 TAB Prov:ALEJANDRA SHAH MD 02/17/19 Naproxen* (Naprosyn*) 500 Mg Tablet, 500 MG PO BID PRN for PAIN AND/OR INFLAMMATION, #30 TAB Prov:RAYMUNDO DALLAS PA-C 03/07/18 Diclofenac Sodium* (Voltaren* Gel) 1% -100 Gm Gel, 2 GM TOP QID, #1 TUB Prov:RAYMUNDO DALLAS PA-C 03/07/18 Olopatadine* (Patanol* Ophth) 0.1% - 5 Ml Drops, 1 DROP BOTH EYES BID, #1 EA Prov:WILMA BERNAL MD 02/18/18 Famotidine* (Pepcid*) 20 Mg Tablet, 20 MG PO BID for 4 Days, TAB Prov:OJ LEDEZMA PA-C 07/03/17 Diphenhydramine Hcl* (Benadryl*) 25 Mg Cap, 25 MG PO Q6, #30 CAP Prov:OJ LEDEZMA PA-C 07/03/17 Prednisone* (Prednisone*) 20 Mg Tab, 40 MG PO DAILY for 4 Days, TAB Prov:OJ LEDEZMA PA-C 07/03/17 Naproxen* (Naprosyn*) 500 Mg Tablet, 500 MG PO BID PRN for PAIN AND/OR INFLAMMATION, #30 TAB Prov:ARIANNA THOMPSON PA-C 06/29/17 Tramadol HCl (Tramadol HCl) 50 Mg Tablet, 50 MG PO Q4 PRN for PAIN, #20 TAB Prov:ARIANNA HTOMPSONC 06/29/17 Acetaminophen* (Tylophen*) 500 Mg Capsule, 1 CAP PO Q6H PRN for PAIN AND OR ELEVATED TEMP, #30 CAP Prov:ARIANNA THOMPSON PA-C 03/14/17 Naproxen* (Naprosyn*) 500 Mg Tablet, 500 MG PO BID PRN for PAIN AND/OR INFLAMM ATION, #30 TAB Prov:ARIANNA THOMPSON PA-C 03/14/17 Tramadol HCl (Tramadol HCl) 50 Mg Tablet, 50 MG PO Q4 PRN for PAIN, #20 TAB Prov:ARIANNA THOMPSON PA-C 03/14/17 Tramadol HCl (Tramadol HCl) 50 Mg Tablet, 50 MG PO Q6 PRN for PAIN, #20 TAB Prov:SERGE LEVINE NP 08/07/16 Ibuprofen* (Motrin*) 400 Mg Tab, 400 MG PO Q6H PRN for PAIN AND OR ELEVATED TEMP, #30 TAB Prov:SERGE LEVINE NP 08/07/16 Penicillin V Potassium* (Penicillin V K*) 500 Mg Tab, 500 MG PO BID for 10 Days, TAB Prov:KIRSTIN HOGAN 04/21/16 Acetaminophen* (Tylenol*) 500 Mg Tab, 1000 MG PO Q4H PRN for PAIN AND OR ELEVATED TEMP for 5 Days, TAB Prov:KIRSTIN HOGAN 04/21/16 Tramadol HCl (Tramadol HCl) 50 Mg Tablet, 50 MG PO Q4 PRN for PAIN, #20 TAB Prov:MARIO BHATTI MD 03/11/16 Ibuprofen* (Motrin*) 400 Mg Tab, 400 MG PO Q6, #20 TAB Prov:MARIO BHATTI MD 03/11/16 Calcium Carbonate/Vitamin D3* (Os-Bijan 500+D*) 1 Tab Tablet, 1 TAB PO BID for 30 Days, TAB Prov:KIRSTEN HIGGINS. 02/15/16 Docusate Sodium* (Colace*) 100 Mg Capsule, 200 MG PO BID for 30 Days, CAP Prov:KIRSTEN HIGGINS. 02/15/16 Lansoprazole* (Prevacid*) 30 Mg Capsule., 30 MG PO DAILY, #30 CAP Prov:CORINE CARROLL MD 08/06/15 Reported Medications Aspirin* (Aspirin* EC) 81 Mg Tablet.dr, 81 MG PO DAILY, TAB 04/07/15 Lisinopril* (Lisinopril*) 20 Mg Tablet, 20 MG PO DAILY, TAB 04/07/15 Multivitamins* (Multivitamins*) 1 Tab Tablet, 1 TAB PO DAILY 08/04/12 Levothyroxine Sodium (Levothroid) 100 Mcg Tablet, 100 MCG PO DAILY 07/21/12 Metoprolol Tartrate* (Lopressor*) 25 Mg Tab, 25 MG PO DAILY 07/21/12 Allergies Allergies: Coded Allergies: No Known Drug Allergies (Verified Allergy, Mild, 03/14/17) PMhx/Soc History of Surgery: Yes (hernia repair appendectomy cholecystectomy abdominal surgery, eye surgery) Anesthesia Reaction: No Hx Neurological Disorder: No Hx Respiratory Disorders: No Hx Cardiac Disorders: Yes (HTN) Hx Psychiatric Problems: No Hx Miscellaneous Medical Probl: No (THYROID) Hx Alcohol Use: No Hx Substance Use: No Hx Tobacco Use: No Physical Exam Vitals Vital Signs Date Temp Pulse Resp B/P (MAP) Pulse Ox O2 O2 Flow FiO2 Time Delivery Rate 06/23/19 97.6 71 15 155/66 100 Room Air 22:50 (95) 06/23/19 77 18 163/65 99 Room Air 22:15 (97) 06/23/19 54 18 195/73 98 Room Air 20:10 (113) 06/23/19 97.5 77 18 183/79 98 16:26 (113) Physical Exam Const: No acute distress. Head: Atraumatic. Eyes: Normal Conjunctiva. ENT: Normal External Ears, Nose and Mouth. Neck: Full range of motion. No meningismus. Resp: Clear to auscultation bilaterally. Cardio: Regular rate and rhythm. Abd: Soft, non distended, normal bowel sounds, non tender. Skin: No petechiae or rashes. Back: No midline or flank tenderness. Ext: No cyanosis, or edema. Neur: Awake and alert. No focal deficit Psych: Normal Mood and Affect. Result Diagram: 06/23/19201206/23/192012 Results 24 hrs Laboratory Tests Test 06/23/19 20:13 White Blood Count 7.2 10^3/ul Red Blood Count 4.84 10^6/ul Hemoglobin 12.7 g/dl Hematocrit 38.9 % Mean Corpuscular Volume 80.4 fl Mean Corpuscular Hemoglobin 26.2 pg Mean Corpuscular Hemoglobin Concent 32.6 g/dl Red Cell Distribution Width 13.0 % Platelet Count 305 10^3/UL Mean Platelet Volume 8.4 fl Immature Granulocytes % 0.300 % Neutrophils % 49.1 % Lymphocytes % 39.9 % Monocytes % 6.9 % Eosinophils % 3.5 % Basophils % 0.3 % Nucleated Red Blood Cells % 0.0 /100WBC Immature Granulocytes # 0.020 10^3/ul Neutrophils # 3.5 10^3/ul Lymphocytes # 2.9 10^3/ul Monocytes # 0.5 10^3/ul Eosinophils # 0.3 10^3/ul Basophils # 0.0 10^3/ul Nucleated Red Blood Cells # 0.0 10^3/ul Prothrombin Time 12.8 Sec Prothrombin Time Ratio 1.0 INR International Normalized Ratio 0.95 Activated Partial Thromboplast Time 31.8 Sec Sodium Level 143 mmol/L Potassium Level 3.7 mmol/L Chloride Level 105 mmol/L Carbon Dioxide Level 28 mmol/L Anion Gap 10 Blood Urea Nitrogen 11 mg/dl Creatinine 0.73 mg/dl Est Glomerular Filtrat Rate mL/min mL/min Glucose Level 103 mg/dl Calcium Level 9.5 mg/dl Current Medications Medications Dose Sig/Caesar Start Time Status Last (Trade) Ordered Route PRN Stop Time Admin Dose Reason Admin Hydralazine 10 mg ONCE ONCE 06/23/19 DC 06/23/19 HCl IV 20:00 20:27 (Apresoline) 06/23/19 20:01 Procedures/[place] [id number] Radiology Main Line: [phone] DIAGNOSTIC IMAGING REPORT Patient: MYA BRITTON : 1940 Age: 79 Sex: F [id number] DOS: 06/23/191952 Ordering MD: DANE FOREMAN MD Location: E/R Room/Bed: PROCEDURE: CT Brain without contrast. CLINICAL INDICATION: Headache. TECHNIQUE: A CT of the brain was performed utilizing axial imaging from the skull base through the vertex without IV contrast. Multiplanar reformatted images were made. Images were reviewed on a PACS workstation. The CTDIvol is 38.74 mGy and the DLP is 669.62 mGycm. DICOM images are available. One or more of the following dose reduction techniques were utilized: 1.) Automated exposure control 2.) Adjustment of the mA +/- kV according to patient's size 3.) Use of iterative reconstruction technique. COMPARISON: CT examination of the head dated 08/31/2015. 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 There is no intracranial hemorrhage, mass effect, or midline shift. No extra- axial fluid collection is seen. The ventricles and sulci are otherwise normal in size and configuration. The density of the brain is otherwise normal, and the ballard white matter differentiation appears well-preserved. The visualized paranasal sinuses and osseous structures are grossly unremarkable. IMPRESSION: 1. 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 2. Otherwise, no evident acute process in the head. RPTAT: [facility] Physician Jenny Date Time Electronically viewed and signed by Physician Jenny on 06/23/2019 21:19 RS/ CC: DANE FOREMAN MD [id number] MEDICAL MAKING DECISION: The patient is a 79-year-old female, presenting with acute headache most likely due to acute hypertensive urgency. She was treated with Hydralazine 10 mg IV with good blood pressure response, her headache improved, is stable for outpatient follow-up The differential diagnoses considered include but are not limited to underwood barachnoid hemorrhage, occult trauma, CVA, meningitis, encephalitis, hypertension, tension, migraine, cluster, narcotic withdrawal, cervical spine disease. Departure Diagnosis: Primary Impression: Hypertensive urgency Additional Impression: Headache Condition: Good Comments She was discharged with Norvasc 5 mg daily I discussed the findings with the patient. I advised the patient to follow-up with the primary physician in about 1-2 days, sooner if needed and return if any concern. Disclaimer: Inadvertent spelling and grammatical errors are likely due to EHR/dictation software use and do not reflect on the overall quality of patient care. Also, please note that the electronic time recorded on this note does not necessarily reflect the actual time of the patient encounter. DANE FOREMAN MD Jun 23, 2019 19:41
[2019-06-23] MEDS ORDERED: hydrALAzine 20 MG INJ IV ONE (20:00)
[2019-06-23 22:50] VITALS: BP 155/66; PULSE 71; RESP 15
== END 2019-06-23 22:54 | disposition home or self-care (01) ==
LOC: E/R 16:10
DX: I16.0 Hypertensive urgency (principal); E03.9 Hypothyroidism, unspecified; R40.2142 Coma scale, eyes open, spontaneous, at arrival to emergency department; R40.2252 Coma scale, best verbal response, oriented, at arrival to emergency department; R40.2362 Coma scale, best motor response, obeys commands, at arrival to emergency department; Z79.82 Long term (current) use of aspirin
CPT/HCPCS: 70450; 80048; 85025; 85610; 85730; J0360; 36415; 96374

== ENCOUNTER 2019-07-31 17:46 | Emergency (ER) | payer OTHER ==
[~2019-07-31] VITALS: Ht 162.6 cm; Wt 65.4 kg
[~2019-07-31 17:46] MED LIST changes: -ACET500C5 PO; -DICL100G37 TOP; -IBUP-1542 PO; -LANS30CA47 PO; -NAPR-985 PO; +OMEP40CA6 PO; -ONDA4TAB14 PO; -PENI500T PO; -PRED20TA PO; -TYL500 PO
[2019-07-31 17:59] VITALS: Ht 162.6 cm; Wt 65.4 kg
[2019-07-31] MEDS ORDERED: LIDOCAINE/MYLANTA 40 ML BTL PO STA (18:28)
[2019-07-31] MEDS ORDERED: SOD CHLORIDE 0.9% 1,000 ML IV STA (18:28)
[2019-07-31] MEDS ORDERED: BELLADONNA/PHENOBARBITAL TAB PO STA (18:28)
[2019-07-31] MEDS ORDERED: IOHEXOL 300MG/ML 150 ML BTL ONE (20:11)
[2019-07-31] MEDS ORDERED: SOD CHLORIDE 0.9% 100 ML ONE (20:11)
[2019-07-31 22:12] VITALS: BP 133/78; PULSE 72; RESP 16
== END 2019-07-31 22:13 | disposition home or self-care (01) ==
LOC: E/R 17:46
DX: K29.00 Acute gastritis without bleeding (principal); I10 Essential (primary) hypertension
CPT/HCPCS: 36415; 74177; 80053; 83690; 84484; 85025; 99285; J7030; Q9967